=== PATIENT | male | born 1950 | race African-American/Black ===

== ENCOUNTER 2024-01-08 19:19 | Emergency (ER) | payer OTHER, MEDICAID ==
[~2024-01-08] VITALS: Ht 188 cm; Wt 82.0 kg
[2024-01-08 19:31] VITALS: O2SAT 98
[2024-01-08] MEDS: SODIUM CHLORIDE 0.9% 1,000 ML IV ONE (19:45)
[2024-01-08] MEDS: CALCIUM GLUCONATE 1GM PREMIX 50 ML IV ONE ×2 (19:45)
[2024-01-08] MEDS: PIPERACILLIN/TAZO 3.375G/50ML 50 ML IV ONE (19:45)
[2024-01-08] MEDS: VANCOMYCIN 1G PREMIX 200 ML IV ONE (19:45)
[2024-01-08 21:49] LABS: BASOPHILS % 0.9 % (0.0-2.0); DIFFERENTIAL COMMENT 0; EOSINOPHILS % 0.3 % (0.0-5.0); HEMATOCRIT. 36.3 % (42.0-52.0); HEMOGLOBIN. 12.4 g/dL (14.0-18.0); LYMPHOCYTES % 20.9 % (20.0-50.0); MEAN CORPUSCULAR HEMOGLOBIN 33.2 pg (28.0-32.0); MEAN CORPUSCULAR HGB CONC 34.1 g/dL (31.0-37.0); MEAN CORPUSCULAR VOLUME 97.4 fL (80.0-94.0); MONOCYTES % 3.2 % (2.0-8.0); NEUTROPHILS % 74.7 % (40.0-76.0); PLATELET 93 x1000/uL (130-400); RED BLOOD CELL COUNT 3.73 mill/uL (4.7-6.1); RED CELL DISTRIBUTION WIDTH 13.1 % (11.6-14.6); WHITE BLOOD COUNT 2.4 x1000/uL (4.5-11.0)
[2024-01-08 21:54] LABS: ALANINE AMINOTRANSFERASE 104 IU/L (10-49); ALBUMIN 4.2 g/dL (3.2-4.8); ASPARTATE AMINOTRANSFERASE 117 IU/L (<34); BILIRUBIN TOTAL 0.8 mg/dL (0.1-1.0); CARBON DIOXIDE 27 mEq/L (21-32); CHLORIDE 108 mEq/L (98-107); CREATINE KINASE 678 IU/L (46-171); CREATININE 1.8 mg/dL (0.6-1.3); GLUCOSE 76 mg/dL (70-105); INR 1.1; POTASSIUM 4.3 mEq/L (3.5-5.1); PROTEIN TOTAL 7.4 g/dL (6.0-8.3); PROTHROMBIN TIME 11.8 sec (9.6-11.0); SODIUM 142 mEq/L (136-145); TROPONIN I HIGH SENSITIVITY 51 ng/L (3.0-53); UREA NITROGEN BLOOD 66 mg/dL (9-23)
[2024-01-08 22:00] LABS: ETHANOL BLOOD < 10 mg/dL (<10)
[2024-01-08] MEDS: ATROPINE SULFATE 1MG/10ML SYR IV ONE (22:12)
[2024-01-09] MEDS: ATROPINE SULFATE 1MG/10ML SYR ONE (05:59)
[2024-01-09 08:22] VITALS: BP 111/55; PULSE 59; RESP 18; TEMP 98
== END 2024-01-09 08:53 | disposition short-term general hospital (02) ==
LOC: ER 19:36 → CANBEDREQ 01-09 08:19 → ER 01-09 08:53
DX: F03.90 Unspecified dementia, unspecified severity, without behavioral disturbance, psychotic disturbance, mood disturbance, and anxiety (principal); F20.9 Schizophrenia, unspecified
CPT/HCPCS: 80053; 80320; 82550; 83880; 83605; 83690; 83735; 85025; 85610; 86850; 86900; 86901; 87040; 84484; 36415; 84145; 71045; 70450; 93005; 96368; 96365; 96366; 99285; J0610; J7030; J0461; G0480